=== PATIENT | male | born 1995 | race Hispanic/Latino ===

== ENCOUNTER 2019-03-13 20:20 | Emergency (ER) | payer OTHER ==
[~2019-03-13] VITALS: Ht 165.1 cm; Wt 68.2 kg
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
[2019-03-13 22:28] VITALS: BP 120/70
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
== END 2019-03-13 22:35 | disposition home or self-care (01) ==
LOC: M ED 20:20
DX: S50.12XA Contusion of left forearm, initial encounter (principal); S00.03XA Contusion of scalp, initial encounter; V43.52XA Car driver injured in collision with other type car in traffic accident, initial encounter

== ENCOUNTER 2019-03-20 20:19 | Emergency (ER) | payer OTHER ==
[~2019-03-20] VITALS: Ht 165.1 cm; Wt 68.2 kg
[2019-03-20 20:19] VITALS: BP 139/75
== END 2019-03-20 21:09 | disposition home or self-care (01) ==
LOC: M ED 20:19
DX: L03.122 Acute lymphangitis of left axilla (principal)

== ENCOUNTER 2019-08-23 10:49 | Emergency (ER) | payer OTHER ==
[~2019-08-23] VITALS: Ht 167.6 cm; Wt 71.9 kg
--- NOTE | 2019-08-23 12:14 | REP ---
LEFT ANKLE, FOUR VIEWS: Four views of the left ankle are performed. There appears to be a nondisplaced avulsion fracture of the tip of the medial malleolus. I see no other evidence of acute fracture, dislocation or intrinsic bone disease. The ankle mortise is anatomic. IMPRESSION: Nondisplaced avulsion fracture tip of medial malleolus. Electronically Signed by Jeff Stanford MD 08/24/2019 09:54 A
[2019-08-23] MEDS ORDERED: IBUP80TA PO (14:15)
[2019-08-23 14:33] VITALS: BP 125/79
== END 2019-08-23 14:34 | disposition home or self-care (01) ==
LOC: M ED 10:49
DX: S82.55XA Nondisplaced fracture of medial malleolus of left tibia, initial encounter for closed fracture (principal); S93.402A Sprain of unspecified ligament of left ankle, initial encounter; X50.1XXA Overexertion from prolonged static or awkward postures, initial encounter; Y92.89 Other specified places as the place of occurrence of the external cause; Y99.1 Military activity; Z72.0 Tobacco use

== ENCOUNTER 2020-11-19 01:00 | Emergency (ER) | payer OTHER ==
[~2020-11-19] VITALS: Ht 167.6 cm; Wt 70.5 kg
[~2020-11-19 01:00] MED LIST: IBUP80TA PO
[2020-11-19 01:37] LABS: HEMATOCRIT 48.4 % (42.0-52.0); HEMOGLOBIN 15.9 g/dl (13.5-17.5); MEAN CORPUSCULAR HGB CONC 32.9 g/dl (32.0-36.5); MEAN CORPUSCULAR VOLUME 88.3 fl (80.0-96.0); PLATELET COUNT, AUTOMATED 256 10^3/uL (150-450); RED BLOOD COUNT 5.48 10^6/uL (4.30-6.10); WHITE BLOOD COUNT 8.6 10^3/uL (4.0-10.0)
[2020-11-19 02:11] LABS: AMPHETAMINES LEVEL URINE NEGATIVE (NEGATIVE); BARBITURATES URINE NEGATIVE (NEGATIVE); BENZODIAZEPINES URINE NEGATIVE (NEGATIVE); CANNABINOIDS URINE NEGATIVE (NEGATIVE); COCAINE METABOLITE URINE NEGATIVE (NEGATIVE); METHADONE URINE NEGATIVE (NEGATIVE); OPIATES URINE NEGATIVE (NEGATIVE); PHENCYCLIDINE URINE NEGATIVE (NEGATIVE)
[2020-11-19 02:35] LABS: ACETAMINOPHEN LEVEL < 2.0 UG/ML (10.0-30.0); ALBUMIN 4.5 GM/DL (3.2-5.2); ALT/SGPT 37 U/L (12-78); BILIRUBIN,DIRECT < 0.1 MG/DL (0.0-0.2); BILIRUBIN,TOTAL 0.4 MG/DL (0.2-1.0); BLOOD UREA NITROGEN 16 MG/DL (7-18); CALCIUM LEVEL 9.3 MG/DL (8.5-10.1); CARBON DIOXIDE LEVEL 28 MEQ/L (21-32); CHLORIDE LEVEL 106 MEQ/L (98-107); CREATININE FOR GFR 1.04 MG/DL (0.70-1.30); ETHYL ALCOHOL (ETHANOL) 0.003 % (0.000-0.010); GLOMERULAR FILTRATION RATE > 60.0 (>60); GLUCOSE, FASTING 99 MG/DL (70-100); POTASSIUM SERUM 3.7 MEQ/L (3.5-5.1); SALICYLATE LEVEL < 1.7 MG/DL (5.0-30.0); SODIUM LEVEL 140 MEQ/L (136-145); TOTAL PROTEIN 8.7 GM/DL (6.4-8.2)
[2020-11-19 03:57] VITALS: BP 130/58
== END 2020-11-19 03:59 | disposition home or self-care (01) ==
LOC: M ED 01:00
DX: F43.0 Acute stress reaction (principal); Z91.5 Personal history of self-harm; F32.9 Major depressive disorder, single episode, unspecified
CPT/HCPCS: 80048; 80076; 80307; 84443; 85027; 99284; G0480